=== PATIENT | male | born 1950 | race Caucasian/White ===

== ENCOUNTER 2024-08-25 19:02 | Emergency (ER) | payer MEDICARE, SELFPAY ==
[2024-08-25 19:09] VITALS: BP 125/82; PULSE 86; RESP 17; TEMP 36.6; O2SAT 98; BMI 26.5
--- NOTE | 2024-08-25 19:13 | ED.GENADULT ---
HPI - General Adult General Chief complaint: Nausea/Vomiting/Diarrhea Stated complaint: diarrhea Time Seen by Provider: 08/25/24 20:21 Source: patient Mode of arrival: ambulatory Limitations: no limitations History of Present Illness ED Provider: tonya jimenez np HPI narrative: Patient is a 74-year-old male who presents emergency department for evaluation. He reports on Thursday at 03:00 (3 days ago) he awoke from sleep with upset stomach nausea vomiting and diarrhea. He states that the vomiting has been at least once a day. Diarrhea has slowed down but states he has experienced 4 bouts of watery diarrhea today. He has felt fatigued, has a lack of appetite. Reports the night prior to symptom onset he had eaten asparagus, pork, potato salad made at home his consumed the same and she became ill with similar symptoms also. Her symptoms have improved at this time. He presented to an urgent care today, and was told he was likely dehydrated and should come to emergency department for further evaluation. He denies associated abdominal pain just some mild cramping just before the bouts of diarrhea. He denies fevers or chills. Denies hematochezia or melena. Denies urinary symptoms. Related Data Allergies Allergy/AdvReac Type Severity Reaction Status Date / Time No Known Allergies Allergy Verified 08/25/24 19:12 Review of Systems Review of Systems: Yes all other systems are reviewed and are negative PMFSH Past Medical History Attestation statement: The following information was validated with the patient. Source: old records reviewed Social History Social History Alcohol intake: current Alcohol intake frequency: 3 or more drinks per day Alcohol type: beer and hard liquor Smoked in Last 30 Days: No Use of substances other than those prescribed or required for medical reasons: No Substance Use Type: Former Substance User and Marijuana Advance Directives: Yes Advance Directives Information Provided: Yes Advance Directives on File: No Do you have a plan to hurt others: No Plan Physical Exam ED Vital Signs: Vital Signs - 24 hr 08/25/24 19:09 08/26/24 00:28 08/26/24 00:45 Temperature 97.9 F 98.7 F 98.7 F Pulse Rate 86 82 82 Respiratory Rate 17 18 18 Blood Pressure 125/82 122/62 122/62 Pulse Oximetry 98 94 94 Oxygen Delivery Method Room Air Room Air Room Air BMI result Body Mass Index 26.5 Appearance: Alert.?Oriented to person, place and time. No acute distress.?Normal affect. Eyes: Pupils equal, round and reactive to light.? ENT: Pharynx normal.??Dry mucous membranes. Neck: Normal inspection.? Neck supple.?? CVS: Heart sounds normal. Normal heart rate and rhythm.? Pulses normal.?? Respiratory: No respiratory distress.? Lung sounds clear to auscultation bilaterally?? Abdomen: Soft and non-tender. Normoactive bowel sounds. Skin: Skin warm and dry.? Normal skin color. Extremities: No lower extremity edema.? Neuro: Moves all extremities spontaneously. Sensation intact bilaterally. CN II-XII intact. No focal neuro deficits. Ambulates with normal steady gait. Course Course Course Narrative: RME, this is a rapid medical exam performed by Gianfranco Barajas please refer to primary provider for complete H&P- 74-year-old male presents for evaluation of abdominal pain and diarrhea. He has had symptoms for the last 3 days. His had similar symptoms. He was sent in by urgent care to rule out dehydration/CORA. Medications Administered Discontinued Medications Generic Name Dose Route Start Last Admin Trade Name Freq PRN Reason Stop Dose Admin Sodium Chloride 1,000 mls @ 999 mls/hr 08/25/24 21:30 08/25/24 23:07 Ns IV 08/25/24 22:30 Infused .Q1H1M [facility] Infusion Medical Decision Making Medical Decision Making [facility] Narrative: Patient is a 74 old male with past medical history of hypertension, hypercholesterolemia, GERD who presents emergency department for evaluation of gastrointestinal illness with vomiting and diarrhea, as per HPI vomiting has decreased only 1 episode today, diarrhea as well has decreased but has experienced 4 episodes. Presents to urgent care and advised to come to emergency department for hydration. His abdominal examination is benign there was no tenderness no rigidity or guarding. He is without signs of systemic toxicity afebrile no tachycardia. No respiratory distress. He had an episode of diarrhea from the waiting room unfortunately stool specimen was not obtained at that time to send for GI panel/culture/C difficile testing. Though he has no risk factors for C difficile. He had serum labs obtained prior to my assumption CBC reveals no leukocytosis anemia or thrombocytopenia. Mild hyponatremia 133 otherwise no electrolyte derangement. Presumed CORA with BUN and creatinine 19/1.43 with EGFR 48 no prior for comparison. Unremarkable LFTs and lipase. Patient will receive 1 L normal saline IV fluid, and will attemp PO trial Differential Diagnosis Differential Diagnoses: The differential diagnosis associated with the presentation includes (CORA, electrolyte derangement, dehydration, gastroenteritis, food-borne illness, viral gastroenteritis. Unlikely diverticulitis, bowel obstruction) Admission/Observation Consideration of admission/observation: Escalation of care including admission/observation considered Lab Data MDM Lab Attestation statement: I reviewed the patient's lab results. (See narrative above) 08/25/24 19:24 08/25/24 19:24 Labs: Lab Results 08/25/24 08/25/24 Range/Units 19:24 23:36 WBC 10.6 (4.8-10.8) X10*3/uL RBC 4.88 (4.60-5.80) X10*6/uL Hgb 15.3 (14.0-18.0) g/dl Hct 42.9 (42.0-52.0) % MCV 87.9 (80.0-98.0) fL MCH 31.4 (27.0-33.0) pg MCHC 35.7 (31.0-36.0) g/dl RDW 13.1 (11.0-16.0) % Plt Count 165 (160-400) X10*3/uL MPV 10.0 (9.4-12.4) fL Immature Gran % (Auto) 0.4 (0.0-0.4) % Neut % (Auto) 72.3 (45-73) % Lymph % (Auto) 12.8 L (20-40) % [place] % (Auto) 14.0 H (2-11) % Eos % (Auto) 0.1 (0-4) % Baso % (Auto) 0.4 (0-2) % Lymph # (Auto) 1.4 (1.2-4.9) X10*3/uL [place] # (Auto) 1.5 H (0.1-1.2) X10*3/uL Eos # (Auto) 0.0 (0.0-0.4) X10*3/uL Baso # (Auto) 0.0 (0.0-0.2) X10*3/uL Abs Immat Gran (auto) 0.04 H (0.00-0.03) X10*3/uL Absolute Neuts (auto) 7.7 (2.0-8.3) x10*3/uL Absolute Nucleated RBC 0.000 (0.0-0.012) X10*3/uL Nucleated RBC % (auto) 0.0 (0.0-0.2) /100WBC Sodium 133 L (135-145) mmol/L Potassium 4.1 (3.3-5.1) mmol/L Chloride 100 (96-108) mmol/L Carbon Dioxide 22 (22-29) mmol/L Anion Gap 15 (12-20) BUN 19 H (9-16) mg/dL Creatinine 1.43 H (0.5-1.4) mg/dL Estim Creat Clear Calc 45.3 Estimated GFR 48 Random Glucose 128 H (60-115) mg/dL Calcium 9.2 (8.4-10.2) mg/dL Magnesium 1.9 (1.6-2.6) mg/dL Total Bilirubin 0.7 (0.0-1.0) mg/dL AST 21 (5-37) U/L ALT 22 (0-40) U/L Alkaline Phosphatase 56 (39-117) U/L Total Protein 7.0 (6.5-8.0) g/dL Albumin 4.3 (3.5-5.0) g/dL Lipase 29 (8-78) U/L Urine Color Yellow Urine Appearance Clear Urine pH 6.0 (5.0-9.0) Ur Specific [place] 1.010 (1.005-1.025) Urine Protein Trace (Neg-Trace) mg/dL Urine Glucose (UA) Negative (Negative) mg/dL Urine Ketones Negative (Negative) mg/dL Urine Blood Trace H (Negative) Urine Nitrite Negative (Negative) Ur Leukocyte Esterase Negative (Negative) Urine RBC 0-2 (0-2) /HPF Urine WBC 0-5 (0-5) /HPF Ur Squamous Epith Cells 0-2 (0-2) /HPF Urine Bacteria None Seen (None Seen) Hyaline Casts 0-2 (0-2) /LPF Independent Historian Clinical information obtained from an independent historian. History obtained from or confirmed by: Spouse Chronic Conditions Patient?s care impacted by: Other (See narrative above) Discharge Plan Discharge Clinical Impression: Gastroenteritis Patient Disposition: Home, Self-Care Instructions: Gastroenteritis (ED) Additional Instructions: As discussed, based on the history it is concerning that you have gastroenteritis which may potentially be viral in nature versus food-borne illness. You were able to provide a stool sample in the emergency department we have sent this for testing. Results will not be available tonight, there is any positive testing was ill you will receive a phone call from the hospital over the next few days. You were found to be mildly dehydrated in you received IV fluids in the emergency department. As discussed, it is important to tried to push herself to eat some solid foods over the next few days following a bland diet as well as staying hydrated drinking at least 8, 8-12 oz glasses of water daily. Introduce a bland diet including crackers, bananas, rice, soup, toast, and boiled vegetables. This may progress to plain baked or boiled chicken or turkey. Avoid dairy products or foods high in fat or grease. Follow-up with your primary care doctor. Return back to emergency department any new or worsening symptoms or concerns. Referrals: Breanna Lau NP [Primary Care Provider] - Interventions: ED Discharge Assessment Last Done: 08/26/24 00:45 Discharge Date/Time: 08/26/24 01:09 Print Language: Latvian
[2024-08-25 19:27] LABS: MANUAL DIFF FLAG NO
[2024-08-25 19:32] LABS: Basophils Percent Auto 0.4 % (0-2); Eosinophils Percent Auto 0.1 % (0-4); Hematocrit 42.9 % (42.0-52.0); Hemoglobin 15.3 g/dl (14.0-18.0); Imm Gran Abs Auto 0.04 X10*3/uL (0.00-0.03); Imm Gran Pct Auto 0.4 % (0.0-0.4); Lymphocytes Absolute Auto 1.4 X10*3/uL (1.2-4.9); Lymphocytes Percent Auto 12.8 % (20-40); Mean Corpuscular HGB Conc 35.7 g/dl (31.0-36.0); Mean Corpuscular Hemoglobin 31.4 pg (27.0-33.0); Mean Corpuscular Volume 87.9 fL (80.0-98.0); Monocytes Absolute Auto 1.5 X10*3/uL (0.1-1.2); Neutrophils Absolute Auto 7.7 x10*3/uL (2.0-8.3); Neutrophils Percent Auto 72.3 % (45-73); Platelet Count 165 X10*3/uL (160-400); Red Blood Count 4.88 X10*6/uL (4.60-5.80); Red Cell Distribution Width 13.1 % (11.0-16.0); White Blood Count 10.6 X10*3/uL (4.8-10.8)
[2024-08-25 19:41] LABS: Alanine Aminotransferase 22 U/L (0-40); Albumin Level 4.3 g/dL (3.5-5.0); Alkaline Phosphatase 56 U/L (39-117); Anion Gap 15 (12-20); Aspartate Amino Transferase 21 U/L (5-37); Bilirubin Total 0.7 mg/dL (0.0-1.0); Blood Urea Nitrogen 19 mg/dL (9-16); Calcium 9.2 mg/dL (8.4-10.2); Carbon Dioxide 22 mmol/L (22-29); Chloride 100 mmol/L (96-108); Creatinine Clr Calc Pharmacy 45.3; Estimated Glomerular Filt Rate 48; Glucose Random 128 mg/dL (60-115); Lipase 29 U/L (8-78); Magnesium 1.9 mg/dL (1.6-2.6); Potassium 4.1 mmol/L (3.3-5.1); Sodium 133 mmol/L (135-145)
[2024-08-25] MEDS: 0.9 % Sodium Chloride 1,000 ML 999 ML IV (22:06)
[2024-08-25 23:45] LABS: Appearance Urine Clear; Color Urine Yellow; Glucose Urine UA Negative (Negative); Leukocyte Esterase Urine Negative (Negative); Nitrite Urine Negative (Negative); UMIC TRIGGER UACC YES; Urine Blood Trace (Negative); Urine Ketones Negative (Negative); Urine Protein Trace mg/dL (Neg-Trace)
[2024-08-25 23:48] LABS: Bacteria Urine None Seen (None Seen); Hyaline Casts Urine 0-2 /LPF (0-2); RBC Urine 0-2 /HPF (0-2); Squamous Epithelial Cell Urine 0-2 /HPF (0-2); WBC Urine 0-5 /HPF (0-5)
[2024-08-26 00:28] VITALS: BP 122/62; PULSE 82; RESP 18; TEMP 37.1; O2SAT 94
[2024-08-26 00:45] VITALS: BP 122/62; PULSE 82; RESP 18; TEMP 37.1; O2SAT 94
[2024-08-26 11:41] LABS: Adenovirus F 40/41 Not Detected (Not Detect.); Astrovirus Not Detected (Not Detect.); Cryptosporidium Not Detected (Not Detect.); Cyclospora cayetanensis Not Detected (Not Detect.); E. coli EAEC Not Detected (Not Detect.); E. coli EPEC Not Detected (Not Detect.); E. coli ETEC Not Detected (Not Detect.); E. coli STEC Not Detected (Not Detect.); Entamoeba histolytica Not Detected (Not Detect.); Giardia lamblia Not Detected (Not Detect.); Norovirus GI/GII Not Detected (Not Detect.); Plesiomonas shigelloides Not Detected (Not Detect.); Rotavirus A Not Detected (Not Detect.); Salmonella Not Detected (Not Detect.); Sapovirus Not Detected (Not Detect.); Shigella sp./EIEC Not Detected (Not Detect.); Vibrio Not Detected (Not Detect.); Vibrio Cholerae Not Detected (Not Detect.)
[2024-08-26 12:32] LABS: Campylobacter Detected (Not Detect.); Yersinia enterocolitica Detected (Not Detect.)
== END 2024-08-26 01:09 | disposition home or self-care (01) ==
PROVIDERS: Physician Assistant; Emergency Provider Emergency Medicine; PCP Nurse Practitioner Family
DX: K52.9 Noninfective gastroenteritis and colitis, unspecified (principal); R11.2 Nausea with vomiting, unspecified; R10.9 Unspecified abdominal pain; R11.0 Nausea; Z79.899 Other long term (current) drug therapy
CPT/HCPCS: 36415; 80053; 81001; 83690; 83735; 85025; 87507; 96360; 99284